=== PATIENT | female | born 1995 | race American Indian/Alaskan Native ===

== ENCOUNTER 2017-05-09 21:28 | Emergency (ER) | payer SELFPAY ==
[2017-05-09 21:28] VITALS: BMI 22.1
[2017-05-09 22:00] VITALS: BP 122/82; PULSE 81; RESP 20; TEMP 98; O2SAT 98
--- NOTE | 2017-05-09 22:40 | C.PDOC ---
History Of Present Illness 21 year old female who presents to the ER with a complaint of pain above the left breast for the past week. Patient states the pain has been constant and worsens with movement; she admits she has been doing a lot of heavy lifting at work. Denies trauma, fever, SOB, back pain, or cough. Time Seen by Provider: 05/09/17 21:55 Chief Complaint (Nursing): Breast Problem History Per: Patient History/Exam Limitations: no limitations Onset/Duration Of Symptoms: Days Current Symptoms Are (Timing): Still Present Recent travel outside of the [place]: No Past Medical History Reviewed: Historical Data, Nursing Documentation, Vital Signs Vital Signs: Last Vital Signs Temp 98 F 05/09/17 21:57 Pulse 81 05/09/17 21:57 Resp 20 05/09/17 21:57 BP 122/82 05/09/17 21:57 Pulse Ox 98 05/10/17 04:32 - Medical History PMH: No Chronic Diseases Surgical History: No Surg Hx Family History: States: Unknown Family Hx - Social History Hx Alcohol Use: No Hx Substance Use: No Review Of Systems Constitutional: Negative for: Fever Respiratory: Negative for: Cough, Shortness of Breath Musculoskeletal: Positive for: Other (Breast pain). Negative for: Back Pain Physical Exam - Physical Exam Appears: Non-toxic, No Acute Distress Skin: Normal Color, Warm, Dry, No Rash Head: Atraumatic, Normacephalic Eye(s): bilateral: Normal Inspection Oral Mucosa: Moist Neck: Normal ROM, Supple Chest: Symmetrical, Tenderness (Left sided), Other (No mass, erythema, or swelling to left breast. No nipple discharge) Cardiovascular: Rhythm Regular, No Murmur Respiratory: Normal Breath Sounds, No Rales, No Rhonchi, No Wheezing Gastrointestinal/Abdominal: Soft, No Tenderness Back: No Vertebral Tenderness, No Paraspinal Tenderness Neurological/Psych: Oriented x3, Normal Speech, Normal Cognition, Normal Motor Gait: Steady ED Course And Treatment O2 Sat by Pulse Oximetry: 98 (Room air) Pulse Ox Interpretation: Normal Medical Decision Making Medical Decision Making: Plan: * Motrin administered. On reevaluations, patient's pain has much improved, will discharge home with instructions to follow up with PMD. Disposition - Disposition Referrals: [facility] at [facility] [Outside] Disposition: HOME/ ROUTINE Disposition Time: 22:38 Condition: GOOD Additional Instructions: Follow up with the medical doctor within 1-2 days. Return if worsened. Prescriptions: Ibuprofen [Motrin] 600 mg PO TID #21 tab Instructions: Musculoskeletal Pain (ED) Forms: [facility] (Portuguese) - Clinical Impression Clinical Impression: Musculoskeletal pain - Scribe Statement The provider has reviewed the documentation as recorded by the Scribe Juan Carlos Stone All medical record entries made by the Scribe were at my direction and personally dictated by me. I have reviewed the chart and agree that the record accurately reflects my personal performance of the history, physical exam, medical decision making, and the department course for this patient. I have also personally directed, reviewed, and agree with the discharge instructions and disposition.
== END 2017-05-09 22:48 | disposition home or self-care (01) ==
LOC: C.ER 21:28
DX: M79.1 Myalgia (principal)

== ENCOUNTER 2017-07-11 11:46 | Emergency (ER) | payer MEDICAID, OTHER ==
[2017-07-11 11:46] VITALS: BMI 22.1
[2017-07-11 12:16] VITALS: RESP 20; O2SAT 99
[2017-07-11] MEDS ORDERED: Sodium Chloride 0.9% 1,000 ML IV ONE (12:43)
[2017-07-11 12:44] LABS: URINE BILIRUBIN NEGATIVE (NEGATIVE); URINE BLOOD NEGATIVE (NEGATIVE); URINE COLOR Straw (YELLOW); URINE GLUCOSE (UA) NORMAL (Normal); URINE KETONE NEGATIVE (NEGATIVE); URINE LEUKOCYTE ESTERASE NEG Leu/uL (Negative); URINE PROTEIN NEGATIVE (NEGATIVE); URINE UROBILINOGEN NORMAL mg/dL (0.2-1.0)
--- NOTE | 2017-07-11 12:54 | C.PDOC ---
History Of Present Illness 21 y/o female currently presents to ED with complaints of lower abdominal pain since this morning. Patient states she had a positive home test 3 days ago. Patient has not been seen by OBGYN and denies fever, chills, vaginal discharge, vaginal bleeding, dysuria, back pain or any other complaints at this time. Patient is RH negative Time Seen by Provider: 07/11/17 12:19 Chief Complaint (Nursing): Abdominal Pain History Per: Patient History/Exam Limitations: no limitations Onset/Duration Of Symptoms: Hrs Current Symptoms Are (Timing): Still Present Location Of Pain/Discomfort: Suprapubic Radiation Of Pain To:: None Quality Of Discomfort: "Pain" Past Medical History Reviewed: Historical Data, Nursing Documentation, Vital Signs Vital Signs: Last Vital Signs Temp 98.6 F 07/11/17 14:26 Pulse 79 07/11/17 14:26 Resp 20 07/11/17 14:26 BP 112/74 07/11/17 14:26 Pulse Ox 99 07/11/17 14:26 - Medical History PMH: No Chronic Diseases Surgical History: No Surg Hx Family History: States: No Known Family Hx - Social History Hx Alcohol Use: No Hx Substance Use: No - Immunization History Hx Tetanus Toxoid Vaccination: Yes Hx Influenza Vaccination: No Hx Pneumococcal Vaccination: No Review Of Systems Constitutional: Negative for: Fever, Chills Gastrointestinal: Positive for: Abdominal Pain. Negative for: Nausea, Vomiting , Diarrhea Genitourinary: Negative for: Dysuria, Hematuria, Vaginal Discharge, Vaginal Bleeding Musculoskeletal: Negative for: Back Pain Skin: Negative for: Rash Physical Exam - Physical Exam Appears: Non-toxic, No Acute Distress Skin: Normal Color, Warm, Dry, No Rash Head: Atraumatic, Normacephalic Eye(s): bilateral: Normal Inspection, EOMI Nose: Normal Oral Mucosa: Moist Neck: Normal ROM, Supple Chest: Symmetrical Cardiovascular: Rhythm Regular Respiratory: Normal Breath Sounds, No Accessory Muscle Use, No Rales, No Rhonchi , No Wheezing Gastrointestinal/Abdominal: Soft, Tenderness (Suprapubic), No Guarding, No Rebound Back: No CVA Tenderness Neurological/Psych: Oriented x3, Normal Speech ED Course And Treatment - Laboratory Results Result Diagrams: 07/11/17 13:24 07/11/17 13:24 O2 Sat by Pulse Oximetry: 99 (RA) Progress Note: US ordered, Blood work. Pt refused pain medication. Discussed with pt since no vaginal bleeding, will not be given rhogam. Disucssed strict follow up with OBGYN in 1-2 days. Case discussed with Dr Velez, agreed upon plan and treatment. Disposition - Disposition Disposition: HOME/ ROUTINE Disposition Time: 14:14 Condition: STABLE Additional Instructions: Follow up with your primary doctor in 1-2 days. Return to ER if symptoms persist or worsen. Prescriptions: Multivit/Folic Acid/I [ Plus] 1 tab PO DAILY #30 tab Instructions: (ED) Forms: [facility] (Slovak) - Clinical Impression Clinical Impression: Abdominal pain during in first trimester - PA / PLATE PRINTER / Resident Statement MD/DO has reviewed & agrees with the documentation as recorded. - Scribe Statement The provider has reviewed the documentation as recorded by the Scribericka De La O All medical record entries made by the Linnetteibericka were at my direction and personally dictated by me. I have reviewed the chart and agree that the record accurately reflects my personal performance of the history, physical exam, medical decision making, and the department course for this patient. I have also personally directed, reviewed, and agree with the discharge instructions and disposition.
[2017-07-11] MEDS ORDERED: Sodium Chloride 0.9% 1,000 ML ONE (13:07)
[2017-07-11 13:30] LABS: BASO % 0.6 % (0.0-2.0); EOS % 0.4 % (0.0-4.0); HEMATOCRIT 39.2 % (34.0-47.0); LYMPH # 1.9 K/uL (1.0-4.3); LYMPH % 23.6 % (20.0-40.0); MEAN CORPUSCULAR HEMOGLOBIN 29.8 pg (27.0-31.0); MEAN CORPUSCULAR HGB CONC 33.5 g/dL (33.0-37.0); MEAN PLATELET VOLUME 10.4 fL (7.2-11.7); MONO # 0.5 K/uL (0.0-0.8); MONO % 6.4 % (0.0-10.0); RED CELL DISTRIBUTION WIDTH 13.5 % (11.5-14.5); WHITE BLOOD COUNT 7.9 K/uL (4.8-10.8)
[2017-07-11 13:38] LABS: CHLORIDE 102 mmol/L (98-107); SODIUM 136 mmol/L (132-148)
[2017-07-11 13:39] LABS: POTASSIUM 3.6 mmol/L (3.6-5.2)
[2017-07-11 13:41] LABS: ALB/GLOB RATIO 1.1 (1.0-2.1); ALKALINE PHOSPHATASE 49 U/L (38-126); ALT/SGPT 22 U/L (9-52); AST/SGOT 18 U/L (14-36); BILIRUBIN,TOTAL 0.7 mg/dL (0.2-1.3); BLOOD UREA NITROGEN 7 mg/dL (7-17); CARBON DIOXIDE 24 mmol/L (22-30); GFR AFRICAN-AMERICAN > 60; GLUCOSE,RANDOM 81 mg/dL (65-105); TOTAL PROTEIN 7.9 g/dL (6.3-8.3)
[2017-07-11 13:42] LABS: CALCIUM 9.6 mg/dl (8.6-10.4)
--- NOTE | 2017-07-11 14:09 | US ---
Pelvic ultrasound History: . Pain. Comparison: None available. Technique: Real-time sonography was performed through the pelvis utilizing transabdominal and transvaginal techniques. Findings: Uterus: 8.9 x 5.5 x 6.4 centimeters. Heterogeneous echotexture. Anteverted. Cervix measures 3.7 centimeters. Hypoechoic foci within the uterus which may represent an intrauterine gestational sac measuring 8.2 millimeters, too small to adequately date. No yolk sac or pole was identified. Free fluid noted within the pelvic cul-de-sac. Right ovary: 3.3 x 2.0 x 2.5 centimeters. Normal flow. Left ovary: 4.0 x 2.3 x 3.2 centimeters. Normal flow. Heterogeneous possible corpus luteal cyst seen in the left ovary measuring 1.9 x 1.1 centimeters. LMP of 05/28/2017 Impression: 1. Hypoechoic 8.2 millimeter foci within the uterus which may represent an intrauterine gestational sac and or early intrauterine . No yolk sac or pole identified at this juncture. Clinical correlation. Continued interval followup is recommended. 2. Heterogeneous cyst in the left ovary which may represent a corpus luteal cyst. Clinical correlation. 3. Free fluid within the pelvic cul-de-sac. Limited 1st trimester ultrasound for viability purposes only. Continued interval followup with serial ultrasound, serial HCG levels, and gynecological consultation would be helpful if clinically indicated.
[2017-07-11 14:27] VITALS: BP 112/74; PULSE 79; TEMP 98.6
== END 2017-07-11 14:26 | disposition home or self-care (01) ==
LOC: C.ER 11:46
DX: O26.891 Other specified pregnancy related conditions, first trimester (principal); R10.30 Lower abdominal pain, unspecified; Z3A.00 Weeks of gestation of pregnancy not specified

== ENCOUNTER 2017-07-16 14:56 | Emergency (ER) | payer OTHER ==
[2017-07-16 14:56] VITALS: BMI 22.1
[2017-07-16 15:06] VITALS: BP 108/70; PULSE 92; TEMP 98.1; O2SAT 99
--- NOTE | 2017-07-16 15:38 | C.PDOC ---
History Of Present Illness 21 y/o F presents for work note. Patient states she is 2 weeks . Denies vaginal bleeding or other complaint. 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 She was told by her employer that she must obtain a work note stating specifically what her work restrictions are. Time Seen by Provider: 07/16/17 15:23 Chief Complaint (Nursing): Medical Clearance Past Medical History Vital Signs: Last Vital Signs Temp 98.1 F 07/16/17 15:01 Pulse 92 H 07/16/17 15:01 Resp 16 07/16/17 15:01 BP 108/70 07/16/17 15:01 Pulse Ox 99 07/16/17 15:01 Family History: States: Unknown Family Hx - Social History Hx Alcohol Use: No Hx Substance Use: No - Immunization History Hx Tetanus Toxoid Vaccination: Yes Hx Influenza Vaccination: No Hx Pneumococcal Vaccination: No Review Of Systems Except As Marked, All Systems Reviewed And Found Negative. Constitutional: Negative for: Fever Gastrointestinal: Negative for: Abdominal Pain Genitourinary: Negative for: Vaginal Bleeding Physical Exam - Physical Exam Additional Physical Exam Comments: Constitutional: No acute distress. Head: Normocephalic. Atraumatic. ENT: Moist mucous membranes. Cardiovascular: Regular rate. Radial pulse 2+ bilaterally. Chest: No tenderness. Respiratory: No accessory muscle use. GI: Soft. Nontender. Non distended. Back: No CVA tenderness. Musculoskeletal: No tenderness or swelling of extremities. Skin: No rash. Neurologic: Alert, no focal deficit. ED Course And Treatment O2 Sat by Pulse Oximetry: 99 Disposition - Disposition Referrals: [facility] at [facility] [Outside] Disposition: HOME/ ROUTINE Disposition Time: 15:35 Condition: STABLE Instructions: (ED) Forms: [facility] (Persian), Work Excuse - Clinical Impression Clinical Impression:
[2017-07-16 16:02] VITALS: RESP 18
== END 2017-07-16 16:02 | disposition home or self-care (01) ==
LOC: C.ER 14:56
DX: Z34.91 Encounter for supervision of normal pregnancy, unspecified, first trimester (principal); Z3A.01 Less than 8 weeks gestation of pregnancy

== ENCOUNTER 2017-07-19 01:48 | Emergency (ER) | payer MEDICAID, OTHER ==
[2017-07-19 08:43] LABS: BASO # 0.1 K/uL (0.0-0.2); BASO % 0.6 % (0.0-2.0); EOS % 0.5 % (0.0-4.0); HEMATOCRIT 38.8 % (34.0-47.0); LYMPH # 2.4 K/uL (1.0-4.3); LYMPH % 22.9 % (20.0-40.0); MEAN CELL VOLUME 89.3 fL (81.0-99.0); MEAN CORPUSCULAR HEMOGLOBIN 29.6 pg (27.0-31.0); MEAN CORPUSCULAR HGB CONC 33.2 g/dL (33.0-37.0); MEAN PLATELET VOLUME 10.8 fL (7.2-11.7); MONO # 0.8 K/uL (0.0-0.8); MONO % 7.6 % (0.0-10.0); NRBC % 0.1 % (0.0-2.0); RED CELL DISTRIBUTION WIDTH 13.5 % (11.5-14.5); WHITE BLOOD COUNT 10.5 K/uL (4.8-10.8)
[2017-07-19 08:49] LABS: BLOOD UREA NITROGEN 8 mg/dL (7-17); GFR AFRICAN-AMERICAN > 60; GLUCOSE,RANDOM 88 mg/dL (65-105); SODIUM 134 mmol/L (132-148)
[2017-07-19 08:50] LABS: ALB/GLOB RATIO 1.1 (1.0-2.1); ALKALINE PHOSPHATASE 46 U/L (38-126); ALT/SGPT 22 U/L (9-52); AST/SGOT 17 U/L (14-36); BILIRUBIN,TOTAL 0.5 mg/dL (0.2-1.3); CALCIUM 8.8 mg/dl (8.6-10.4); CARBON DIOXIDE 21 mmol/L (22-30); CHLORIDE 102 mmol/L (98-107); POTASSIUM 3.8 mmol/L (3.6-5.2); TOTAL PROTEIN 7.3 g/dL (6.3-8.3)
--- NOTE | 2017-07-20 23:50 | CARD ---
APPROVED REPORT EKG Measurement Heart [id number] <Conclusion> Normal sinus rhythm Normal ECG
== END 2017-07-19 03:47 | disposition left against medical advice (07) ==
LOC: C.ER 01:48
DX: O26.891 Other specified pregnancy related conditions, first trimester (principal); R07.9 Chest pain, unspecified; Z3A.01 Less than 8 weeks gestation of pregnancy
CPT/HCPCS: 80053; 84484; 84702; 85025; 93005; 96361; 96374; 96375; 99281; J2765; J7040